=== PATIENT | female | born 1960 | race Caucasian/White ===

== ENCOUNTER 2019-03-31 14:51 | Inpatient (IN) | payer OTHER ==
[~2019-03-31] VITALS: Ht 162.6 cm; Wt 107.6 kg
[2019-03-31] MEDS ORDERED: ASPIRIN 81MG TABLET PO ONE (15:30)
[2019-03-31 15:42] LABS: BASOPHILS % 0.6 % (0.0-2.0); HEMATOCRIT. 42.1 % (36.0-48.0); HEMOGLOBIN. 13.7 g/dL (12.0-16.0); LYMPHOCYTES % 27.9 % (20.0-50.0); MEAN CORPUSCULAR HEMOGLOBIN 27.3 pg (28.0-32.0); MEAN PLATELET VOLUME 7.8 fl (7.4-10.4); MONOCYTES % 9.9 % (2.0-8.0); NEUTROPHILS % 60.6 % (40.0-76.0); PLATELET 245 x1000/uL (130-400); RED BLOOD CELL COUNT 5.01 mill/uL (4.2-5.4); RED CELL DISTRIBUTION WIDTH 13.9 % (11.6-14.6)
[2019-03-31 15:46] LABS: CHLORIDE 111 mEq/L (98-107)
[2019-03-31] MEDS ORDERED: DILTIAZEM HCL 5MG/ML 5ML VIAL IV ONE (16:00)
[2019-03-31] MEDS: NITROGLYCERIN 0.4MG TABLET SL SL PRN (16:24)
[2019-03-31] MEDS ORDERED: DILTIAZEM HCL 120MG CAPSULE CD 24HR PO ONE (16:30)
[2019-03-31] MEDS ORDERED: ENOXAPARIN 120MG/0.8ML SYR SUBCUT ONE (16:45)
[2019-03-31] MEDS ORDERED: POTASSIUM CHLORIDE 20MEQ TABLET SR PO ONE (17:45)
[2019-03-31 18:39] VITALS: BP 148/69
[2019-03-31 20:20] VITALS: BP 155/94
[2019-03-31 20:21] VITALS: BP 155/94
[2019-03-31] MEDS ORDERED: DEXTROSE 50% WATER 50ML SYRINGE IV PRN ×2 (21:00)
[2019-03-31] MEDS: INSULIN LISPRO 100 UNITS/ML SUBCUT SCH (21:00)
[2019-03-31] MEDS ORDERED: IPRATROPIUM/ALBUTEROL 0.5-3(2.5)MG/3ML NEB INH PRN (21:00)
[2019-03-31] MEDS ORDERED: ACETAMINOPHEN 325MG TABLET PO PRN (21:00)
[2019-03-31] MEDS ORDERED: DOCUSATE SODIUM 100MG CAPSULE PO PRN (21:00)
[2019-03-31] MEDS ORDERED: DIPHENHYDRAMINE 50MG/ML VIAL IV PRN (21:00)
[2019-03-31] MEDS: BLOOD SUGAR DIAGNOSTIC STRIP TEST SCH (22:02)
[2019-03-31 22:03] VITALS: BP 155/89
[2019-03-31] MEDS: DILTIAZEM HCL 30MG TABLET PO SCH (23:06)
[2019-03-31] MEDS: ENOXAPARIN 30MG/0.3ML SYR SUBCUT SCH (23:07)
[2019-04-01] VITALS (18 sets, daily range): BP systolic 110–158; BP diastolic 62–91
[2019-04-01] MEDS: NITROGLYCERIN 0.4MG TABLET SL SL PRN (03:43)
[2019-04-01] MEDS: DILTIAZEM HCL 30MG TABLET PO SCH (06:00)
[2019-04-01] MEDS: BLOOD SUGAR DIAGNOSTIC STRIP TEST SCH ×4 (06:02→20:52)
[2019-04-01 06:26] LABS: BASOPHILS % 0.6 % (0.0-2.0); EOSINOPHILS % 0.9 % (0.0-5.0); HEMATOCRIT. 39.8 % (36.0-48.0); HEMOGLOBIN. 12.8 g/dL (12.0-16.0); LYMPHOCYTES % 36.4 % (20.0-50.0); MEAN CORPUSCULAR HEMOGLOBIN 27.4 pg (28.0-32.0); MEAN CORPUSCULAR VOLUME 85.1 fL (81.0-99.0); MEAN PLATELET VOLUME 8.1 fl (7.4-10.4); MONOCYTES % 11.4 % (2.0-8.0); NEUTROPHILS % 50.7 % (40.0-76.0); PLATELET 222 x1000/uL (130-400); RED BLOOD CELL COUNT 4.68 mill/uL (4.2-5.4); RED CELL DISTRIBUTION WIDTH 13.9 % (11.6-14.6)
[2019-04-01 06:55] LABS: CHLORIDE 111 mEq/L (98-107)
[2019-04-01 07:00] LABS: LDL CHOLESTEROL 99 mg/dL (5-100)
[2019-04-01 07:02] LABS: HDL CHOLESTEROL 56 mg/dL (40-59)
[2019-04-01 07:03] LABS: PHOSPHORUS 3.4 mg/dL (2.5-4.9)
[2019-04-01] MEDS: INSULIN LISPRO 100 UNITS/ML SUBCUT SCH ×4 (07:16→20:59)
[2019-04-01] MEDS ORDERED: VOLTAREN 1% TOP (08:06)
[2019-04-01] MEDS ORDERED: LEVO88TA7 PO (08:07)
[2019-04-01] MEDS ORDERED: OMEP20TA15 PO (08:09)
[2019-04-01] MEDS ORDERED: METO100T16 PO (08:10)
[2019-04-01] MEDS ORDERED: AMLO10TA80 PO (08:12)
[2019-04-01] MEDS ORDERED: FURO40TA5 PO (08:12)
[2019-04-01] MEDS ORDERED: AMIO100T4 PO (08:13)
[2019-04-01] MEDS: ENOXAPARIN 30MG/0.3ML SYR SUBCUT SCH ×2 (09:24→21:34)
[2019-04-01 12:15] LABS: OPIATES URINE SCREEN NEGATIVE (NEGATIVE); PHENCYCLIDINE URINE SCREEN NEGATIVE (NEGATIVE)
[2019-04-01 12:22] LABS: *BENZODIAZEPINES SCREEN URINE NEGATIVE (NEGATIVE)
[2019-04-01 12:23] LABS: *COCAINE SCREEN URINE NEGATIVE (NEGATIVE)
[2019-04-01 12:26] LABS: *BARBITURATES SCREEN URINE PRESUMTIVE POSITIVE (NEGATIVE); CANNABINOID URINE SCREEN NEGATIVE (NEGATIVE)
[2019-04-01 12:27] LABS: METHADONE URINE SCREEN NEGATIVE (NEGATIVE)
[2019-04-01 12:29] LABS: *AMPHETAMINES SCREEN URINE NEGATIVE (NEGATIVE)
[2019-04-01] MEDS: AMLODIPINE 5MG TABLET PO SCH ×2 (13:56→21:33)
[2019-04-01] MEDS: METOPROLOL TARTRATE 50MG TABLET PO SCH ×2 (13:57→21:33)
[2019-04-02] VITALS (7 sets, daily range): BP systolic 123–153; BP diastolic 62–81
[2019-04-02] MEDS: BLOOD SUGAR DIAGNOSTIC STRIP TEST SCH ×2 (06:15→12:10)
[2019-04-02] MEDS ORDERED: LEVOTHYROXINE SODIUM 88MCG TABLET PO SCH (06:50)
[2019-04-02 07:01] LABS: CHLORIDE 109 mEq/L (98-107)
[2019-04-02 07:05] LABS: HEMATOCRIT. 41.4 % (36.0-48.0); HEMOGLOBIN. 13.5 g/dL (12.0-16.0); MEAN CORPUSCULAR HEMOGLOBIN 27.8 pg (28.0-32.0); MEAN CORPUSCULAR VOLUME 85.2 fL (81.0-99.0); PLATELET 240 x1000/uL (130-400); RED BLOOD CELL COUNT 4.86 mill/uL (4.2-5.4); RED CELL DISTRIBUTION WIDTH 13.8 % (11.6-14.6)
[2019-04-02] MEDS: INSULIN LISPRO 100 UNITS/ML SUBCUT SCH ×2 (07:06→12:20)
[2019-04-02] MEDS: METOPROLOL TARTRATE 50MG TABLET PO SCH (09:00)
[2019-04-02] MEDS ORDERED: ASPIRIN 81MG EC TABLET PO SCH (09:00)
[2019-04-02] MEDS: ENOXAPARIN 30MG/0.3ML SYR SUBCUT SCH (09:14)
[2019-04-02] MEDS: AMLODIPINE 5MG TABLET PO SCH (09:14)
[2019-04-02] MEDS ORDERED: REGADENOSON 0.4 MG/5 ML IV ONE ×2 (09:30→11:58)
[2019-04-02] MEDS ORDERED: MAGNESIUM/ALUMINUM HYDROXIDE/SIMETHICONE 30ML UDC PO PRN (10:00)
[2019-04-02] MEDS ORDERED: OMEPRAZOLE 20MG CAPSULE EXTENDED RELEASE PO SCH (10:00)
[2019-04-02 18:30] LABS: PLATELET ESTIMATE NORMAL
== END 2019-04-02 14:58 | disposition home or self-care (01) | DRG 201 ==
LOC: ER 14:51 → 3WST 16:46 → EDBEDREQ 16:51 → EDBEDREQSVC 16:51 → EDBEDREQTM 16:51 → ENRESERV 17:27
PROVIDERS: ADMIT Family Medicine Adult Medicine; ATTEND Family Medicine Adult Medicine
DX: I48.0 Paroxysmal atrial fibrillation (principal); Z68.41 Body mass index [BMI] 40.0-44.9, adult; E11.9 Type 2 diabetes mellitus without complications; I48.92 Unspecified atrial flutter; E87.6 Hypokalemia; E89.0 Postprocedural hypothyroidism; K44.9 Diaphragmatic hernia without obstruction or gangrene; I10 Essential (primary) hypertension; Z91.14 Patient's other noncompliance with medication regimen; Z79.84 Long term (current) use of oral hypoglycemic drugs; Z79.899 Other long term (current) drug therapy; Z98.891 History of uterine scar from previous surgery; Z90.49 Acquired absence of other specified parts of digestive tract
CPT/HCPCS: 36415; 71045; 78452; 80048; 80061; 80305; 82962; 83735; 83880; 84100; 84439; 84443; 84481; 84484; 93005; 93017; 93306; 93970; 99285; A9500; J1650; J2785; J3490